=== PATIENT | female | born 1975 | race Caucasian/White ===

== ENCOUNTER → 2020-02-15 15:22 | Outpatient (CLI) | payer OTHER, SELFPAY ==
[2020-02-15 15:18] VITALS: BMI 34.4
--- NOTE | 2020-02-15 15:27 | RAD_ITS ---
STUDY: X-RAY - LEFT FOOT CLINICAL: Female, 44 years old. STUBBED LITTLE TOE, PAIN TECHNIQUE: 3 view(s) of the foot. COMPARISON: None. FINDINGS: Normal talus, calcaneus, and tarsal bones. Normal visualized subtalar, talonavicular, calcaneocuboid, tarsal and tarsometatarsal articulations. Normal metatarsi. Normal metatarsophalangeal joint of the great toe. Normal tibial and fibular sesamoid bones. Normal interphalangeal joint of the great toe. Normal phalanges of the great toe. Normal second through fifth metatarsophalangeal joints. Normal interphalangeal joints and phalanges of the lesser toes. Soft tissue swelling. RAD/Foot min 3 Views IMPRESSION: Soft tissue swelling. Electronically Signed: Luís Mac, at 15:47 EDT , Service support ,
== END ==
PROVIDERS: Visit Provider Physician Assistant
DX: M79.675 Pain in left toe(s) (principal)
CPT/HCPCS: 73630